=== PATIENT | female | born 1955 | race Caucasian/White ===

== ENCOUNTER 2020-07-17 12:06 | Inpatient (IN) | payer OTHER, MEDICAID ==
[~2020-07-17] VITALS: Ht 165.1 cm; Wt 91.6 kg
--- NOTE | ~2020-07-17 | EMS ---
[place] [address] EMS Patient Care Report Name: EILEEN SALEH [id number] Admission: 07/17/20 Attend Phys: Discharge: Date of : 57 Report #: [id number] THIS REPORT FOR: //name// Report Transmitted: 07/17/2020 12:48 EMS Care Summary [facility] Incident 20-0734 @ 07/17/2020 11:21 Incident Location [address] [place] [address] Patient EILEEN SALEH Female, 65 Years 1955 Patient Address [address] [place] [address] Patient History Chronic Obstructive Pulmonary Disease (COPD),Hypertension (HTN),Anxiety Disorder (Panic Attacks),Depression,Hypoparathyroidism, Patient Medications Vitamin B12, Memantine, Clonazepam, Loratadine, Tramadol, Sertraline, Trazodone, Rosuvastatin, Topiramate, Meloxicam, Colace, Famotidine, Amlodipine, Losartan, Enablex, Benztropine, Proair, Levothyroxine, Gabapentin, Albuterol, Flonase, Chief Complaint Anxiety/Dementia/Fatigue Disposition Transported No Lights/[place] Dispatch Reason No Other Appropriate [place] [address] EMS Patient Care Report Name: EILEEN SALEH Room: [facility]#: [id number] Admission: 07/17/20 Attend Phys: Discharge: Date of : 57 Report #: [id number] Engine 2 and Med 1 were dispatched for a [age] year-old female c/o fatigue and weakness for the last five days. Engine 2 and Med 1 arrived on scene and patient's son was waiting outside of the apartment and reported to the crew that his mother has dementia and has not taken her medication for the last several days. And that his aunt helps take care of her and her medications and they came over to check on her and she was having hallucinations. The patient was sitting in her living room in a recliner, she had strong, regular, radial pulses, trachea midline, no JVD noted. Patient was very pleasant but was unable to tell me where she was or what month it was. Nitrocellulose Operator Prabhu asked the patient what was going on she responded, " You know I am just feeling really tired and I can't describe the rest to you because you would not believe me." Patient's medical HX and Medications were obtained from the patients sister who was on scene. Patient was assisted to the stretcher and secured via the seatbelts and moved to the ambulance without incident. In the ambulance, patient began to have an anxiety attack and Nitrocellulose Operator Prabhu was able to calm her down and patient was placed on Oxygen via NC at 2 lpm. Patient's vitals were obtained, patient was placed on the tutor coordinator it shown NSR. IV access was attempted in the patient's left AC with a 20 GA catheter but patient began getting anxious again so IV access was unsuccessful. A blood glucose was obtained with a result of 155 mg/dL. Med 1 went en route to [facility]. Patient's vitals were monitored and stable through out transport. Hospital report was given via radio with no questions or orders requested or received. Med 1 arrived at the hospital. Patient was moved into the ER via stretcher without incident to room 3. Patient care was transferred to ER staff. Med 1 retuned back into service. Page [id number] Initial Vitals @11:51P: 65,BP: 112/81,SpO2: 98, @11:48P: 66,R: 18,GCS: 14,SpO2: 100, @11:38P: 76,R: 22,BP: 114/86,GCS: 14,SpO2: 100,Revised Trauma: 12, @11:39P: 74,SpO2: 100, Assessments @11:25MENTAL:Confused,Hallucinations,Person Oriented,SKIN:HEENT:Neck/Airway: No Abnormalities,LUNG SOUNDS:ABDOMEN:PELVIS//GI:EXTREMITIES:Left Arm: No Abnormalities,Right Arm: No Abnormalities,Left Leg: No Abnormalities,Right Leg: No Abnormalities,PULSE:NEURO:No Abnormalities, [place] [address] EMS Patient Care Report Name: EILEEN SALEH Room: [facility]#: [id number] Admission: 07/17/20 Attend Phys: Discharge: Date of : 57 Report #: [id number] Anxiety reaction/Emotional upset Procedures @11:30StretcherResponse: Unchanged@11:40 cc (20 ga) Site: [facility]ubital-LeftResponse: UnchangedFailed Timeline 11:21,Call Received 11:21,Dispatched 11:21,En Route 11:23,On Scene 11:24,At Patient 11:30,Stretcher,Response: Unchanged 11:38,BP: 114/86 M,PULSE: 76,RR: 22 R,SPO2: 100 Ox,ETCO2: ,BG: ,PAIN: ,GCS: 14, 11:39,BP: / M,PULSE: 74,RR: R,SPO2: 100 Ox,ETCO2: ,BG: ,PAIN: ,GCS: , 11:40,Depart Scene 11:40, cc 20 ga Site: [facility],Response: UnchangedFailed, 11:48,BP: / M,PULSE: 66,RR: 18 R,SPO2: 100 Ox,ETCO2: ,BG: ,PAIN: ,GCS: 14, 11:51,BP: 112/81 M,PULSE: 65,RR: R,SPO2: 98 Ox,ETCO2: ,BG: ,PAIN: ,GCS: , 12:02,At Destination 12:35,Call Closed 12:35,In District Disclaimer v1.1 Copyright 2020 [employer] This EMS Care Summary contains data elements from the applicable legal record (which may be displayed differently). It is designed to provide pertinent information for the following purposes: continuity of care, clinical quality, and state data reporting. The complete legal record is available to ED staff and administrators of the receiving hospital in [employer]'s Patient Tracker. All data is provided "as is."
--- NOTE | ~2020-07-17 | EMS ---
[address] [address] EMS Patient Care Report Name: EILEEN SALEH Room: [address] IN ..#: [id number] Admission: 07/17/20 Attend Phys: Meka Harper Discharge: Date of : 57 Report #: [id number] THIS REPORT FOR: //name// Report Transmitted: 07/17/2020 19:48 EMS Care Summary [facility] Incident 20-0734 @ 07/17/2020 11:21 Incident Location [address] [place] [address] Patient EILEEN SALEH Female, 65 Years 1955 Patient Address [address] [place] [address] Patient History Chronic Obstructive Pulmonary Disease (COPD),Hypertension (HTN),Anxiety Disorder (Panic Attacks),Depression,Hypoparathyroidism, Patient Medications Vitamin B12, Memantine, Clonazepam, Loratadine, Tramadol, Sertraline, Trazodone, Rosuvastatin, Topiramate, Meloxicam, Colace, Famotidine, Amlodipine, Losartan, Enablex, Benztropine, Proair, Levothyroxine, Gabapentin, Albuterol, Flonase, Chief Complaint Anxiety/Dementia/Fatigue Disposition Transported No Lights/[place] Dispatch Reason No Other Appropriate Choice Transported To [address] [address] EMS Patient Care Report Name: EILEEN SALEH Room: [address] ADM IN M.R.#: [id number] Admission: 07/17/20 Attend Phys: Meka Harper Discharge: Date of : 57 Report #: [id number] Engine 2 and Med 1 were dispatched for a [age] year-old female c/o fatigue and weakness for the last five days. Engine 2 and Med 1 arrived on scene and patient's son was waiting outside of the apartment and reported to the crew that his mother has dementia and has not taken her medication for the last several days. And that his aunt helps take care of her and her medications and they came over to check on her and she was having hallucinations. The patient was sitting in her living room in a recliner, she had strong, regular, radial pulses, trachea midline, no JVD noted. Patient was very pleasant but was unable to tell me where she was or what month it was. Joiner Helper Prabhu asked the patient what was going on she responded, " You know I am just feeling really tired and I can't describe the rest to you because you would not believe me." Patient's medical HX and Medications were obtained from the patients sister who was on scene. Patient was assisted to the stretcher and secured via the seatbelts and moved to the ambulance without incident. In the ambulance, patient began to have an anxiety attack and Joiner Helper Prabhu was able to calm her down and patient was placed on Oxygen via NC at 2 lpm. Patient's vitals were obtained, patient was placed on the tool grinder set up operator gear it shown NSR. IV access was attempted in the patient's left AC with a 20 GA catheter but patient began getting anxious again so IV access was unsuccessful. A blood glucose was obtained with a result of 155 mg/dL. Med 1 went en route to [facility]. Patient's vitals were monitored and stable through out transport. Hospital report was given via radio with no questions or orders requested or received. Med 1 arrived at the hospital. Patient was moved into the ER via stretcher without incident to room 3. Patient care was transferred to ER staff. Med 1 retuned back into service. Jaxonk [id number] Initial Vitals @11:51P: 65,BP: 112/81,SpO2: 98, @11:48P: 66,R: 18,GCS: 14,SpO2: 100, @11:38P: 76,R: 22,BP: 114/86,GCS: 14,SpO2: 100,Revised Trauma: 12, @11:39P: 74,SpO2: 100, Assessments @11:25MENTAL:Confused,Hallucinations,Person Oriented,SKIN:HEENT:Neck/Airway: No Abnormalities,LUNG SOUNDS:ABDOMEN:PELVIS//GI:EXTREMITIES:Left Arm: No Abnormalities,Right Arm: No Abnormalities,Left Leg: No Abnormalities,Right Leg: No Abnormalities,PULSE:NEURO:No Abnormalities, [place] [address] EMS Patient Care Report Name: EILEEN SALEH Room: [address] IN .R.#: [id number] Admission: 07/17/20 Attend Phys: Meka Harper Discharge: Date of : 57 Report #: [id number] Anxiety reaction/Emotional upset Procedures @11:30StretcherResponse: Unchanged@11:40 cc (20 ga) Site: Antecubital-LeftResponse: UnchangedFailed Timeline 11:21,Call Received 11:21,Dispatched 11:21,En Route 11:23,On Scene 11:24,At Patient 11:30,Stretcher,Response: Unchanged 11:38,BP: 114/86 M,PULSE: 76,RR: 22 R,SPO2: 100 Ox,ETCO2: ,BG: ,PAIN: ,GCS: 14, 11:39,BP: / M,PULSE: 74,RR: R,SPO2: 100 Ox,ETCO2: ,BG: ,PAIN: ,GCS: , 11:40,Depart Scene 11:40, cc 20 ga Site: Antecubital-Left,Response: UnchangedFailed, 11:48,BP: / M,PULSE: 66,RR: 18 R,SPO2: 100 Ox,ETCO2: ,BG: ,PAIN: ,GCS: 14, 11:51,BP: 112/81 M,PULSE: 65,RR: R,SPO2: 98 Ox,ETCO2: ,BG: ,PAIN: ,GCS: , 12:02,At Destination 12:35,Call Closed 12:35,In District Disclaimer v1.1 Copyright 2020 [employer] This EMS Care Summary contains data elements from the applicable legal record (which may be displayed differently). It is designed to provide pertinent information for the following purposes: continuity of care, clinical quality, and state data reporting. The complete legal record is available to ED staff and administrators of the receiving hospital in [employer]'s Patient Tracker. All data is provided "as is."
[2020-07-17 12:10] VITALS: BP 110/70
[2020-07-17 13:22] LABS: ABSOLUTE BASOPHILS 0.1 thou/uL (0.0-0.2); ABSOLUTE LYMPHOCYTES 0.9 thou/uL (0.8-5.3); ABSOLUTE MONOCYTES 0.6 thou/uL (0.0-1.2); ABSOLUTE NEUTROPHILS 5.3 thou/uL (1.6-8.1); BASOPHILS 0.8 %; EOSINOPHILS 0.4 %; HEMOGLOBIN 13.3 gm/dL (12.0-15.0); MCH 24.7 pg (26.0-34.0); MCHC 34.9 g/dL (28.0-37.0); MCV 70.8 fL (80.0-100.0); MONOCYTES 9.2 %; MPV 7.1 fl. (7.2-11.1); NUCLEATED RBCS 0 /100WBC; PLATELET COUNT* 352 thou/uL (150-400); POLYS 76.6 %; RBC 5.37 mil/uL (4.20-5.00); RDW-CV 18.2 % (10.5-14.5); WBC 6.9 thou/uL (4.0-11.0)
[2020-07-17 13:33] LABS: CALCIUM 9.6 mg/dL (8.5-10.1); CREATININE 1.8 mg/dL (0.6-1.3)
[2020-07-17 13:38] LABS: ALBUMIN 4.3 g/dL (3.4-5.0); TOTAL BILIRUBIN 0.9 mg/dL (<0.1-1.0); TOTAL PROTEIN 7.7 g/dL (6.4-8.2)
[2020-07-17 13:42] LABS: SALICYLATE < 2.8 mg/dL (2.8-20.0)
[2020-07-17 13:43] LABS: ACETAMINOPHEN < 2 ug/mL (10-30); ALCOHOL < 10 mg/dL (<10)
[2020-07-17 13:45] LABS: URINE BILIRUBIN NEGATIVE (Negative); URINE BLOOD NEGATIVE (Negative); URINE CLARITY CLEAR; URINE COLOR YELLOW; URINE GLUCOSE-RANDOM NEGATIVE (Negative); URINE KETONES NEGATIVE (Negative); URINE LEUKOCYTES-REFLEX TRACE (Negative); URINE NITRITE-REFLEX NEGATIVE (Negative); URINE PROTEIN NEGATIVE (Negative); URINE SPECIFIC GRAVITY <= 1.005 (1.005-1.030); URINE UROBILINOGEN 0.2 E.U./dl (0.2-1.0)
[2020-07-17 13:51] LABS: POTASSIUM 2.7 mmol/L (3.5-5.1)
[2020-07-17 13:54] LABS: AMP/METHAMP Negative (Negative); BARBITURATES Negative (Negative); BENZODIAZEPINES Negative (Negative); COCAINE Negative (Negative); METHADONE Negative (Negative); OPIATES Negative (Negative); PCP Negative (Negative); THC Negative (Negative)
[2020-07-17 13:56] LABS: BACTERIA-REFLEX None Seen /HPF (None Seen); CASTS None Seen /LPF (None Seen); CRYSTALS None Seen /LPF (None Seen); SQUAMOUS NONE SEEN /LPF (0-3); URINE RBC None Seen /HPF (0-2); URINE WBC-REFLEX 0-5 Rare /HPF (0-5)
[2020-07-17] MEDS ORDERED: TRAMADOL 50 MG50 MG PO (15:04)
[2020-07-17] MEDS ORDERED: CLARITIN10 M2 PO (15:04)
[2020-07-17] MEDS ORDERED: SYMBICORT160 MCG/4. INH (15:04)
[2020-07-17] MEDS ORDERED: PROAIR HFA8.5 GM INH (15:05)
[2020-07-17] MEDS ORDERED: DOCUSATE SODIU100 MG PO (15:05)
[2020-07-17] MEDS ORDERED: HEARTBURN PREVE20 MG PO (15:05)
[2020-07-17] MEDS ORDERED: NORVASC10 MG PO (15:08)
[2020-07-17] MEDS ORDERED: TOPAMAX50 MG PO (15:09)
[2020-07-17] MEDS ORDERED: MOBIC7.5 MG PO (15:09)
[2020-07-17] MEDS ORDERED: BENZTROPINE ME0.5 MG PO (15:10)
[2020-07-17] MEDS ORDERED: ROSUVASTATIN CA10 MG PO (15:10)
[2020-07-17] MEDS ORDERED: TRAZODONE HCL50 MG PO (15:10)
[2020-07-17] MEDS ORDERED: NAMENDA XR28 MG PO (15:10)
[2020-07-17] MEDS ORDERED: LEVO-T50 MCG PO (15:10)
[2020-07-17] MEDS ORDERED: LATUDA60 MG PO (15:10)
[2020-07-17] MEDS ORDERED: NORCO 5-325 TA1 EAC2 PO (15:11)
[2020-07-17] MEDS ORDERED: CLONAZEPAM 0.50.5 M1 PO (15:11)
[2020-07-17] MEDS ORDERED: NEURONTIN 300M300 M2 PO (15:11)
[2020-07-17] MEDS ORDERED: SERTRALINE HCL100 MG PO (15:11)
[2020-07-17 15:20] LABS: MAGNESIUM 2.1 mg/dL (1.8-2.4); PHOSPHORUS* 1.7 mg/dL (2.5-4.9)
--- NOTE | 2020-07-17 16:07 | EKG ---
[place] [address] ELECTROCARDIOGRAM REPORT Name: EILEEN SALEH Room: [place] [address] ADM IN .R.#: [id number] Admission: 07/17/20 Attend Phys: Walter Zheng Discharge: Date of : 57 Date of Service: 07/17/20 1242 Report #: [id number] THIS REPORT FOR: //name// [facility] ED Test Date: 2020-07-17 Test Time: 12:42:25 Pat Name: EILEEN SALEH Department: Room: [facility] Gender: F [employer] Be[employer]er: CCD : 1955 Requested By: Danni Cespedes Order Number: [id number] MD: Rajinder Cordon Measurements Intervals [place] Rate: 60 P: 64 SD: 192 QRS: -59 QRSD: 112 T: -89 QT: 484 QTc: 484 Interpretive Statements Sinus rhythm artifact noted Borderline IVCD with LAD Abnormal R-wave progression, late transition Inferior infarct, age indeterminate No previous ECG available for comparison Electronically Signed On 07-17-2020 16:07:01 CDT by Rajinder Cordon [email or web address] <ELECTRONICALLY SIGNED> By: Rajinder Cordon MD, [facility] 07/17/20 1607 1242 1242 Rajinder Cordon MD, [facility] /EPI
[2020-07-17 20:30] VITALS: BP 128/40
[2020-07-17 20:44] VITALS: BP 104/61
[2020-07-18] VITALS: BP 98/58
[2020-07-18 04:00] VITALS: BP 128/73; BP 95/46
[2020-07-18 05:25] LABS: CALCIUM 8.9 mg/dL (8.5-10.1); CREATININE 1.6 mg/dL (0.6-1.3)
[2020-07-18 08:00] VITALS: BP 117/69
[2020-07-18 12:00] VITALS: BP 119/62
[2020-07-18 16:03] VITALS: BP 105/54
[2020-07-18 16:25] VITALS: BP 105/54
[2020-07-18] MEDS ORDERED: POTASSIUM CITR10 ME1 PO (16:32)
== END 2020-07-18 18:30 | disposition home or self-care (01) | DRG 640 ==
LOC: M.ERS 12:06 → M.TBA-ER 15:27 → M.2W 15:27
PROVIDERS: Nurse Practitioner Family; ADMIT Internal Medicine; ATTEND Internal Medicine
DX: E87.1 Hypo-osmolality and hyponatremia (principal); G93.41 Metabolic encephalopathy; Z20.828 Contact with and (suspected) exposure to other viral communicable diseases; F03.90 Unspecified dementia, unspecified severity, without behavioral disturbance, psychotic disturbance, mood disturbance, and anxiety; E78.00 Pure hypercholesterolemia, unspecified; E87.6 Hypokalemia; E66.01 Morbid (severe) obesity due to excess calories; E03.9 Hypothyroidism, unspecified; G43.909 Migraine, unspecified, not intractable, without status migrainosus; I12.9 Hypertensive chronic kidney disease with stage 1 through stage 4 chronic kidney disease, or unspecified chronic kidney disease; E78.5 Hyperlipidemia, unspecified; N18.9 Chronic kidney disease, unspecified; Z88.8 Allergy status to other drugs, medicaments and biological substances; Z82.49 Family history of ischemic heart disease and other diseases of the circulatory system; Z68.33 Body mass index [BMI] 33.0-33.9, adult; Z79.899 Other long term (current) drug therapy; F41.9 Anxiety disorder, unspecified

== ENCOUNTER 2020-10-08 18:43 | Observation (INO) | payer OTHER, MEDICAID ==
[~2020-10-08] VITALS: Ht 165.1 cm; Wt 87.2 kg
[~2020-10-08 18:43] MED LIST: BENZTROPINE ME0.5 MG PO; CLARITIN10 M2 PO; CLARITIN10 MG PO; CLONAZEPAM 0.50.5 M1 PO; DOCUSATE SODIU100 MG PO; HEARTBURN PREVE20 MG PO; LATUDA20 MG PO; LATUDA60 MG PO; LEVO-T50 MCG PO; MOBIC7.5 MG PO; NAMENDA XR28 MG PO; NEURONTIN 300M300 M2 PO; NORCO 5-325 TA1 EAC2 PO; NORVASC10 MG PO; NORVASC5 MG PO; POTASSIUM CITR10 ME1 PO; PROAIR HFA8.5 GM INH; ROSUVASTATIN CA10 MG PO; SERTRALINE HCL100 MG PO; SODIUM CHLORIDE1 GM PO; SYMBICORT160 MCG/4. INH; TOPAMAX50 MG PO; TRAMADOL 50 MG50 MG PO; TRAZODONE HCL50 MG PO; ZOLOFT 50 MG TA50 M1 PO
[2020-10-08 18:46] VITALS: BP 142/80
[2020-10-08 20:04] LABS: ABSOLUTE BASOPHILS 0.1 thou/uL (0.0-0.2); ABSOLUTE EOSINOPHILS 0.1 thou/uL (0.0-0.7); ABSOLUTE LYMPHOCYTES 1.7 thou/uL (0.8-5.3); ABSOLUTE MONOCYTES 0.8 thou/uL (0.0-1.2); ABSOLUTE NEUTROPHILS 4.4 thou/uL (1.6-8.1); BASOPHILS 0.8 %; EOSINOPHILS 1.6 %; HEMOGLOBIN 12.4 gm/dL (12.0-15.0); LYMPHOCYTES 23.6 %; MCH 26.4 pg (26.0-34.0); MCHC 33.4 g/dL (28.0-37.0); MCV 79.1 fL (80.0-100.0); MPV 6.9 fl. (7.2-11.1); NUCLEATED RBCS 0 /100WBC; PLATELET COUNT* 305 thou/uL (150-400); RBC 4.68 mil/uL (4.20-5.00); RDW-CV 16.5 % (10.5-14.5)
[2020-10-08 20:12] LABS: CALCIUM 9.5 mg/dL (8.5-10.1)
[2020-10-08 20:17] LABS: POTASSIUM 2.4 mmol/L (3.5-5.1); TOTAL BILIRUBIN 0.4 mg/dL (<0.1-1.0); TOTAL PROTEIN 5.9 g/dL (6.4-8.2)
[2020-10-08 21:17] LABS: MAGNESIUM 2.3 mg/dL (1.8-2.4); PHOSPHORUS* 2.9 mg/dL (2.5-4.9)
[2020-10-08 22:42] VITALS: BP 111/73
[2020-10-09 00:59] LABS: CALCIUM 8.6 mg/dL (8.5-10.1)
[2020-10-09 01:03] LABS: POTASSIUM 2.9 mmol/L (3.5-5.1)
[2020-10-09 02:43] VITALS: BP 99/51
[2020-10-09 05:40] VITALS: BP 117/69
[2020-10-09 07:18] LABS: CALCIUM 9.1 mg/dL (8.5-10.1); CREATININE 0.9 mg/dL (0.6-1.3); MAGNESIUM 2.3 mg/dL (1.8-2.4); POTASSIUM 3.2 mmol/L (3.5-5.1)
[2020-10-09 10:00] VITALS: BP 126/71
[2020-10-09 11:30] VITALS: BP 103/53
[2020-10-09 12:45] LABS: CALCIUM 9.7 mg/dL (8.5-10.1); CREATININE 0.9 mg/dL (0.6-1.3); POTASSIUM 3.6 mmol/L (3.5-5.1)
[2020-10-09 15:52] VITALS: BP 127/66
--- NOTE | 2020-10-09 16:38 | EKG ---
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: [place] : 1955 Requested By: Faviola Stoddard Order Number: [id number] MD: Jordi Kennedy Measurements Intervals [place] Rate: 64 P: 72 MI: 165 QRS: -30 QRSD: 115 T: -8 QT: 516 QTc: 533 Interpretive Statements Sinus rhythm Incomplete right bundle branch block Diffuse nonspecific ST-T abnormalities Compared to ECG 07/17/2020 12:42:25 Incomplete right bundle-branch block persists Myocardial infarct finding no longer present Electronically Signed On 10-09-2020 16:38:13 [employer] by Jordi Kennedy [email or web address] <ELECTRONICALLY SIGNED> By: Jordi Kennedy MD, FACC 10/09/20 1638 50 50 Jordi Kennedy MD, FACC /EPI
[2020-10-09 17:12] LABS: POTASSIUM 4.1 mmol/L (3.5-5.1)
--- NOTE | 2020-10-09 18:14 | NUR ---
PT AO X4 SITTING IN CHAIR FOR ASSESMENT. ALL MORNING MEDS WERE ADMINISTERED AND FLUIDS WERE STARTED. PT ASKS APPROPRIATE QUESTIONS. LUNGS CTA, PAIN 7/10 WITH HEADACHE THAT SHE STATES IS CHRONIC. ULTRAM AND TOPAMAX WAS GIVEN FOR THIS WITH GOOD RESULTS. PT AMBULATED TO TOILET INDEPENDENTLY WITH NO ISSUE. SHE HAD TELEPSYCH EVAL WHICH WENT WELL. PT MADE NO REQUESTS THIS AFTERNOON, ATE MOST OF ALL MEAL TRAYS. SHE IS ON A 1500mL FLUID RESTRICTION FOR WHICH SHE WAS SURPRISED AND ALMOST PANICED THAT SHE WAS ABOUT OUT OF FLUIDS FOR THE DAY AT 1500.
[2020-10-09 19:25] LABS: CALCIUM 9.5 mg/dL (8.5-10.1)
--- NOTE | 2020-10-09 20:00 | NUR ---
RECEIVED REPORT AND ASSUMED CARE OF PT, ASSESSMENT COMPLETED. SITTING UP IN CHAIR WATCHING TV, NO COMPLAINTS VOICED. TELEMETRY ON SHOWING SR. WILL CONT TO MONITOR AND ASSIST NEEDED.
[2020-10-09 20:30] VITALS: BP 121/64
[2020-10-10] VITALS: BP 95/50
[2020-10-10 04:00] VITALS: BP 95/45
[2020-10-10 05:05] LABS: CALCIUM 9.1 mg/dL (8.5-10.1); CREATININE 0.9 mg/dL (0.6-1.3); MAGNESIUM 2.4 mg/dL (1.8-2.4); POTASSIUM 3.7 mmol/L (3.5-5.1)
--- NOTE | 2020-10-10 06:00 | NUR ---
SLEPT WELL TONIGHT. INDEPENDENT BRP. NO COMPLAINTS VOICED. TELEMTRY CONT TO SHOW SR. HS GOALS OF REST AND SAFETY ACHIEVED. HOURLY ROUNDING OBSERVED.
--- NOTE | 2020-10-10 08:41 | NUR ---
Pt is A&O. Resides at home alone. Independent. Pt has a cleaning lady that comes in once/week. Sister provides transportation. Pt uses a walker PRN for mobility. No hx of HH or SNF. Pt plans to return home at dc, no needs anticipated. Possible dc home today. Following.
[2020-10-10] MEDS ORDERED: DRY MOUTH SWISH&SPIT (08:45)
[2020-10-10 10:54] VITALS: BP 95/45
--- NOTE | 2020-10-10 21:06 | NUR ---
CARES PROVIDED FROM 0700 UNTIL PATIENT DISMISSAL AT 1145. PT HAS REMAINED ALERT/ORIENTED X 4. AMBULATORY IN ROOM. GAIT STEADY AND INDEPENDENT. PT HAS TOLERATED DIET. IV AND TELEMETRY WERE DISCONTINUED INTACT. PT HAS HAD REGULAR NONLABORED RESPIRATIONS. NO INDICATION OF RESPIRATORY DISTRESS. PT VERBALIZES UNDERSTANDING OF DISMISSAL INSTRUCTIONS. PRESCRIPTION FOR MOUTH MOISTERIZER NOT AVAILABLE AT PTS PHARMACY. I SPOKE WITH DR VILLAFANA ABOUT THIS AND BIOTIN OTC PRODUCT RECOMMENDED TO PATIENT. AT TIME OF DISMISSAL PT DECLINES WHEELCHAIR TO EXIT AND PREFERS TO AMBULATE TO MAIN ENTRANCE. PT ACCOMPANIED BY HER SISTER AND PCT JOHANNE. PT STABLE AT TIME OF DISCHARGE. VS THIS AM WERE 108/58 66 HEART RATE, 16 RESPIRATIONS PER MINUTE AND PT AFREBRILE AT 97.5.
== END 2020-10-10 11:45 | disposition home or self-care (01) ==
LOC: M.ERS 18:43 → M.TBA-ER 21:07 → M.2W 10-09 10:14
PROVIDERS: Internal Medicine; Personal Emergency Response Attendant; ADMIT Internal Medicine; ATTEND Internal Medicine
DX: E87.1 Hypo-osmolality and hyponatremia (principal); E87.6 Hypokalemia; R63.1 Polydipsia; G92 Toxic encephalopathy; F31.9 Bipolar disorder, unspecified; E03.9 Hypothyroidism, unspecified; J44.9 Chronic obstructive pulmonary disease, unspecified; K21.9 Gastro-esophageal reflux disease without esophagitis; G25.81 Restless legs syndrome; E44.0 Moderate protein-calorie malnutrition; R68.2 Dry mouth, unspecified; Z79.899 Other long term (current) drug therapy; Z20.828 Contact with and (suspected) exposure to other viral communicable diseases